=== PATIENT | female | born 1955 | race African-American/Black ===

== ENCOUNTER 2019-02-13 17:34 | Emergency (ER) | payer SELFPAY ==
[~2019-02-13] VITALS: Ht 152.4 cm; Wt 90.9 kg
[~2019-02-13 17:34] MED LIST: AMLO-511 PO; ASPI-556 PO; BENA5TAB26 PO; HUM10VIA6 SQ; HYDR25TA PO; LEVO250 PO; METF-444 PO
[2019-02-13 17:55] LABS: GLUCOSE,POINT OF CARE 190 MG/DL (70-110)
[2019-02-13] MEDS ORDERED: CloNIDine HCL 0.2 MG TABLET PO ONE (18:45)
[2019-02-13] MEDS ORDERED: HYDROCHLOROTHIAZIDE 25 MG TABLET PO ONE (18:45)
[2019-02-13] MEDS ORDERED: HydrALAZINE HCL 10 MG TABLET PO ONE (20:00)
[2019-02-13 20:50] VITALS: BP 170/98
== END 2019-02-13 21:02 | disposition home or self-care (01) ==
LOC: EMS 17:36
DX: H60.93 Unspecified otitis externa, bilateral (principal); E11.9 Type 2 diabetes mellitus without complications; I10 Essential (primary) hypertension; Z79.82 Long term (current) use of aspirin; Z79.4 Long term (current) use of insulin

== ENCOUNTER 2023-10-11 12:04 | Emergency (ER) | payer MEDICARE ==
[~2023-10-11] VITALS: Ht 152.4 cm; Wt 86.4 kg
[~2023-10-11 12:04] MED LIST changes: +AMLO-257 PO; -AMLO-511 PO; -BENA5TAB26 PO; +BENA5TAB48 PO; -HYDR25TA PO; +HYDR25TA2 PO; -LEVO250 PO; -METF-444 PO
[2023-10-11 12:10] VITALS: TEMP 98
[2023-10-11] MEDS ORDERED: ASPI-1522 PO (14:09)
[2023-10-11] MEDS ORDERED: ATEN-72 PO (14:09)
[2023-10-11] MEDS ORDERED: LATA2.5D14 OU (14:09)
[2023-10-11] MEDS ORDERED: LEVO75 PO (14:09)
[2023-10-11] MEDS ORDERED: BENA40TA92 PO (14:09)
[2023-10-11] MEDS ORDERED: METF-446 PO (14:09)
[2023-10-11] MEDS ORDERED: AMLO5TAB66 PO (14:09)
[2023-10-11] MEDS ORDERED: CHLO25TA3 PO (14:09)
[2023-10-11] MEDS ORDERED: PRAV40TA4 PO (14:09)
[2023-10-11] MEDS ORDERED: SITA100 PO (14:09)
[2023-10-11] MEDS ORDERED: GLIP5TAB15 PO (14:09)
[2023-10-11] MEDS ORDERED: FERR325T23 PO (14:09)
[2023-10-11] MEDS ORDERED: ALBU18HF7 PO (14:09)
[2023-10-11] MEDS ORDERED: CYAN-42 SQ (14:09)
[2023-10-11] MEDS ORDERED: TRAZ-257 PO (14:09)
[2023-10-11] MEDS: MINERAL OIL 133 ML ENEMA PR ONE ×2 (14:14→18:26)
[2023-10-11 15:59] LABS: BASOPHILS % (AUTO) 0.7 % (0.0-2.0); EOSINOPHILS % (AUTO) 0.5 % (1.0-6.0); HEMATOCRIT 35.8 % (36-46); HEMOGLOBIN 11.3 g/dL (12.0-16.0); LYMPHOCYTES # (AUTO) 1.7 K/uL (1.0-4.8); LYMPHOCYTES % (AUTO) 19.5 % (22.0-44.0); MEAN CORPUSCULAR HEMOGLOBIN 27.2 pg (26.0-34.0); MEAN CORPUSCULAR HGB CONC 31.7 G/dL (31.0-37.0); MEAN CORPUSCULAR VOLUME 86 fL (80-100); MONOCYTES # (AUTO) 0.6 K/uL (0.1-1.0); MONOCYTES % (AUTO) 6.9 % (2.0-9.0); NEUTROPHILS # (AUTO) 6.2 K/uL (1.8-7.7); NEUTROPHILS % (AUTO) 72.4 % (40.0-70.0); PLATELET COUNT (AUTO) 373 K/uL (150-450); RED BLOOD CELL COUNT(AUTO) 4.16 MIL/uL (4.00-5.20); RED CELL DISTRIBUTION WIDTH 17.7 % (11.5-14.5); WHITE BLOOD COUNT (AUTO) 8.6 K/uL (4.5-11.0)
[2023-10-11 16:07] LABS: CREATININE 1.42 mg/dL (0.60-1.30); POTASSIUM 4.4 mmol/L (3.5-5.1)
[2023-10-11] MEDS ORDERED: IOHEXOL 350 MG/ML 100 ML VIAL ONE (16:10)
[2023-10-11] MEDS ORDERED: SODIUM CHLORIDE 0.9% 100 ML ONE (16:10)
[2023-10-11 16:13] LABS: ALBUMIN 3.4 g/dL (3.4-5.0); BILIRUBIN,TOTAL 0.3 mg/dL (0.1-1.0); TOTAL PROTEIN, SERUM 8.6 g/dL (6.4-8.2)
[2023-10-11 18:19] VITALS: BP 127/67; PULSE 88; RESP 18
[2023-10-11] MEDS: MAGNESIUM CITRATE [LEMON] 300 ML ORAL SOLUTION PO ONE (18:23)
== END 2023-10-11 18:34 | disposition home or self-care (01) ==
LOC: EMS 12:04
DX: K59.00 Constipation, unspecified (principal); E11.9 Type 2 diabetes mellitus without complications; I10 Essential (primary) hypertension
CPT/HCPCS: 99285; 74177; 80053; 85025; 36415; Q9967; J7050